=== PATIENT | female | born 1960 | race Caucasian/White ===

== ENCOUNTER 2024-01-26 16:25 | Emergency (ER) | payer SELFPAY ==
[~2024-01-26] VITALS: Ht 165.1 cm; Wt 68.0 kg
[2024-01-26 16:29] VITALS: BP 140/85; RESP 18; TEMP 98.2; O2SAT 97
[2024-01-26 16:36] VITALS: PULSE 98
[2024-01-26] MEDS: IBUPROFEN 400MG TABLET PO ONE (19:00)
[2024-01-26] MEDS: TETANUS, DIPHTHERIA, PERTUSSIS VAC/PF 0.5ML (>10YR OLD) IM ONE (19:21)
[2024-01-26] MEDS: LIDOCAINE HCL/PF 1% 10 MG/ML 5ML VIAL INFIL ONE (19:22)
== END 2024-01-26 19:38 | disposition home or self-care (01) ==
LOC: ER 16:25
DX: S60.352A Superficial foreign body of left thumb, initial encounter (principal); S01.21XA Laceration without foreign body of nose, initial encounter; S80.212A Abrasion, left knee, initial encounter; W18.39XA Other fall on same level, initial encounter; Y93.89 Activity, other specified; Y92.89 Other specified places as the place of occurrence of the external cause; Y99.8 Other external cause status
CPT/HCPCS: 12011; 73130; 73560; 90471; 90715; 99284

== ENCOUNTER 2024-01-28 09:51 | Emergency (ER) | payer OTHER ==
[~2024-01-28] VITALS: Ht 177.8 cm; Wt 77.0 kg
[2024-01-28 10:07] VITALS: O2SAT 98
[2024-01-28 12:09] VITALS: BP 133/71; PULSE 68; RESP 16; TEMP 98.8
== END 2024-01-28 12:10 | disposition home or self-care (01) ==
LOC: ER 09:51
DX: Z13.89 Encounter for screening for other disorder (principal)
CPT/HCPCS: 99281